=== PATIENT | female | born 1965 | race Caucasian/White ===

== ENCOUNTER 2022-12-30 05:44 | Emergency (ER) | payer BC ==
[~2022-12-30] VITALS: Ht 167.6 cm; Wt 81.7 kg
[2022-12-30 05:54] VITALS: BP 138/89
[2022-12-30] MEDS ORDERED: Percocet 5-3251 EACH PO (06:40)
== END 2022-12-30 07:14 | disposition home or self-care (01) ==
LOC: ER 05:44
DX: M23.92 Unspecified internal derangement of left knee (principal); W01.198A Fall on same level from slipping, tripping and stumbling with subsequent striking against other object, initial encounter
CPT/HCPCS: 73562-LT; A9270